=== PATIENT | male | born 1970 | race Caucasian/White ===

== ENCOUNTER → 2016-10-30 | Outpatient (CLI) | payer OTHER ==
[~2016-10-30] MED LIST: ACETAMINOPHEN TAB 500 MG TAB PO ONE; INFLIXIMAB IV ONE; LORATADINE 10 MG TAB PO ONE; SODIUM CHLORIDE 0.9% 250 ML in EMPTY BAG 1 BAG IV PRN; SODIUM CHLORIDE 0.9% 500 ML in EMPTY BAG 1 BAG IV PRN; SODIUM CHLORIDE 0.9% IV ONE
[2016-10-30 07:47] VITALS: TEMP 98
[2016-10-30 09:21] VITALS: BP 120/70; PULSE 65; RESP 16
== END | disposition home or self-care (01) ==
LOC: PROCWHC3 07:31
PROVIDERS: ATTEND Internal Medicine Gastroenterology
DX: K51.90 Ulcerative colitis, unspecified, without complications (principal)
CPT/HCPCS: 96361; 96413; 96415

== ENCOUNTER → 2016-12-25 | Outpatient (CLI) | payer OTHER ==
[2016-12-25 07:32] VITALS: TEMP 98.3
[2016-12-25 08:15] VITALS: PULSE 63; RESP 18
[2016-12-25 08:47] VITALS: BP 121/61
== END | disposition home or self-care (01) ==
LOC: PROCWHC3 07:15
PROVIDERS: ATTEND Internal Medicine Gastroenterology
DX: K51.90 Ulcerative colitis, unspecified, without complications (principal)
CPT/HCPCS: 96361; 96413; 96415

== ENCOUNTER → 2017-02-20 | Outpatient (CLI) | payer OTHER ==
[~2017-02-20] MED LIST changes: -ACETAMINOPHEN TAB 500 MG TAB PO ONE; -LORATADINE 10 MG TAB PO ONE
[2017-02-20 07:20] VITALS: RESP 16; TEMP 97.7
[2017-02-20 09:09] VITALS: BP 110/58; PULSE 66
== END ==
LOC: PROCWHC3 07:13
PROVIDERS: ATTEND Internal Medicine Gastroenterology
DX: K51.90 Ulcerative colitis, unspecified, without complications (principal)
CPT/HCPCS: 96360; 96413; 96415

== ENCOUNTER → 2017-04-17 | Outpatient (CLI) | payer OTHER ==
[~2017-04-17] MED LIST changes: +ACETAMINOPHEN TAB 500 MG TAB PO ONE; +LORATADINE 10 MG TAB PO ONE
[2017-04-17 08:08] VITALS: TEMP 98.2
[2017-04-17 09:39] VITALS: BP 118/64; PULSE 66; RESP 18
== END ==
LOC: PROCWHC3 07:13
PROVIDERS: ATTEND Internal Medicine Gastroenterology
DX: Z51.11 Encounter for antineoplastic chemotherapy (principal); K51.90 Ulcerative colitis, unspecified, without complications
CPT/HCPCS: 96413; 96415

== ENCOUNTER 2017-05-29 09:54 | Emergency (ER) | payer OTHER ==
[2017-05-29] MEDS ORDERED: KETOROLAC 30 MG/ML 1 ML VIAL IVP STA (10:12)
--- NOTE | 2017-05-29 10:14 | ED ---
General Adult HPI - General Chief complaint: Chest Pain Stated complaint: chest pain x 3 days Time Seen by Provider: 05/29/17 10:06 Source: patient, RN notes reviewed Mode of arrival: wheelchair Limitations: no limitations - History of Present Illness Initial comments: Patient is a pleasant 46-year-old male presenting to the emergency Department with chest discomfort. Onset was 2 or 3 days ago. Discomfort is sternal. Discomfort increases with deep breaths and cough. Discomfort also increases with certain positions. No dyspnea. No nausea or diaphoresis. No history of similar symptoms previously. Patient does have a history of previous pneumothorax and pleurisy however those are somewhat different. No leg pain or leg swelling. Patient has lost some weight over the past few once. Patient was diagnosed with lupus less than a year ago and has been on Plaquenil and did have 1 dose of steroids. Patient states his lupus mostly affects his joints. - Related Data Home Medications Medication Instructions Recorded Confirmed Mesalamine [Lialda] 2.4 gm PO DAILY 04/14/14 05/29/17 inFLIXimab [Remicade] 400 mg IVPB Q56D 01/07/15 05/29/17 Hydroxychloroquine Sulfate 200 mg PO BID 04/17/17 05/29/17 [Plaquenil] Dicyclomine [Bentyl] 10 mg PO BID 05/29/17 05/29/17 Previous Rx's Medication Instructions Recorded Acetaminophen-Codeine 300-30mg 2 each PO Q6H PRN #20 tablet 05/29/17 [Tylenol #3] Allergies Allergy/AdvReac Type Severity Reaction Status Date / Time Penicillins Allergy Severe Anaphylaxis Verified 05/29/17 10:27 Review of Systems ROS Statement: Those systems with pertinent positive or pertinent negative responses have been documented in the HPI. ROS Other: All systems not noted in ROS Statement are negative. Constitutional: Denies: fever Eyes: Denies: eye pain ENT: Denies: ear pain Respiratory: Denies: cough, dyspnea Cardiovascular: Reports: chest pain Endocrine: Denies: fatigue Gastrointestinal: Denies: abdominal pain Genitourinary: Denies: dysuria Musculoskeletal: Denies: back pain Skin: Denies: rash Neurological: Denies: weakness Past Medical History Past Medical History: Hyperlipidemia Additional Past Medical History / Comment(s): ulcerative colitis, cluster headaches, LUPUS History of Any Multi-Drug Resistant Organisms: None Reported Past Surgical History: Back Surgery, Hernia Repair Additional Past Surgical History / Comment(s): septoplasty, hernia,right arm tendon repair, clavicle reduction ,cervical fusion, COLONOSCOPY Past Anesthesia/Blood Transfusion Reactions: No Reported Reaction Past Psychological History: No Psychological Hx Reported Smoking Status: Current every day smoker Past Alcohol Use History: Rare Past Drug Use History: None Reported - Past Family History Mother History Unknown: Yes Family Medical History: Congestive Heart Failure (CHF), CVA/TIA Additional Family Medical History / Comment(s): at 65 Father Family Medical History: Cancer Additional Family Medical History / Comment(s): pancreatic cancer General Exam Limitations: no limitations General appearance: alert, in no apparent distress Head exam: Present: atraumatic Eye exam: Present: normal appearance, PERRL ENT exam: Present: normal oropharynx Neck exam: Present: normal inspection Respiratory exam: Present: normal lung sounds bilaterally, chest wall tenderness (Right sternal) Cardiovascular Exam: Present: regular rate, normal rhythm GI/Abdominal exam: Present: soft. Absent: tenderness Extremities exam: Present: normal inspection. Absent: pedal edema, calf tenderness Neurological exam: Present: alert Psychiatric exam: Present: normal affect, normal mood Skin exam: Present: normal color Course Vital Signs 05/29/17 05/29/17 09:58 11:23 Temperature 97.1 F L Pulse Rate 86 62 Respiratory 18 18 Rate Blood Pressure 147/73 115/69 O2 Sat by Pulse 100 100 Oximetry EKG Findings - EKG Comments: EKG Findings:: Normal sinus rhythm at 76. Sinus arrhythmia. AK 168. QRS 88. QT 372. QTC 418. Normal axis. Normal QRS. Early repolarization changes. Previous EKG dated 03/05/2016 reviewed. Medical Decision Making - Medical Decision Making Patient reexamined and significantly improved following Toradol. Case was discussed in detail with Dr. Bridgette matos, covering for Dr. Galan. He does feel patient can be discharged with all up in the beginning of the week. Patient states he feels much better and is comfortable with discharge home. - Lab Data Result diagrams: 05/29/17 10:20 05/29/17 10:20 Lab Results 05/29/17 05/29/17 05/29/17 Range/Units 10:20 10:20 10:20 WBC 7.9 (3.8-10.6) k/uL RBC 4.66 (4.30-5.90) m/uL Hgb 14.6 (13.0-17.5) gm/dL Hct 44.6 (39.0-53.0) % MCV 95.6 (80.0-100.0) fL MCH 31.3 (25.0-35.0) pg MCHC 32.8 (31.0-37.0) g/dL RDW 14.0 (11.5-15.5) % Plt Count 276 (150-450) k/uL Neutrophils % 52 % Lymphocytes % 32 % Monocytes % 8 % Eosinophils % 4 % Basophils % 1 % Neutrophils # 4.1 (1.3-7.7) k/uL Lymphocytes # 2.6 (1.0-4.8) k/uL Monocytes # 0.6 (0-1.0) k/uL Eosinophils # 0.3 (0-0.7) k/uL Basophils # 0.1 (0-0.2) k/uL PT (9.0-12.0) sec INR (<1.2) APTT (22.0-30.0) sec D-Dimer (<0.60) mg/L FEU Sodium 141 (137-145) mmol/L Potassium 4.3 (3.5-5.1) mmol/L Chloride 108 H (98-107) mmol/L Carbon Dioxide 24 (22-30) mmol/L Anion Gap 9 mmol/L BUN 18 (9-20) mg/dL Creatinine 0.91 (0.66-1.25) mg/dL Est GFR (MDRD) Af Amer >60 (>60 ml/min/1.73 sqM) Est GFR (MDRD) Non-Af >60 (>60 ml/min/1.73 sqM) Glucose 86 (74-99) mg/dL Calcium 9.1 (8.4-10.2) mg/dL Magnesium 1.8 (1.6-2.3) mg/dL Total Bilirubin 0.4 (0.2-1.3) mg/dL AST 26 (17-59) U/L ALT 42 (21-72) U/L Alkaline Phosphatase 47 (38-126) U/L Total Creatine Kinase 411 H (55-170) U/L CK-MB (CK-2) 1.6 (0.0-2.4) ng/mL CK-MB (CK-2) Rel Index 0.4 Troponin I <0.012 (0.000-0.034) ng/mL Total Protein 6.6 (6.3-8.2) g/dL Albumin 4.0 (3.5-5.0) g/dL 05/29/17 Range/Units 10:20 WBC (3.8-10.6) k/uL RBC (4.30-5.90) m/uL Hgb (13.0-17.5) gm/dL Hct (39.0-53.0) % MCV (80.0-100.0) fL MCH (25.0-35.0) pg MCHC (31.0-37.0) g/dL RDW (11.5-15.5) % Plt Count (150-450) k/uL Neutrophils % % Lymphocytes % % Monocytes % % Eosinophils % % Basophils % % Neutrophils # (1.3-7.7) k/uL Lymphocytes # (1.0-4.8) k/uL Monocytes # (0-1.0) k/uL Eosinophils # (0-0.7) k/uL Basophils # (0-0.2) k/uL PT 10.2 (9.0-12.0) sec INR 1.0 (<1.2) APTT 29.6 (22.0-30.0) sec D-Dimer 0.36 (<0.60) mg/L FEU Sodium (137-145) mmol/L Potassium (3.5-5.1) mmol/L Chloride (98-107) mmol/L Carbon Dioxide (22-30) mmol/L Anion Gap mmol/L BUN (9-20) mg/dL Creatinine (0.66-1.25) mg/dL Est GFR (MDRD) Af Amer (>60 ml/min/1.73 sqM) Est GFR (MDRD) Non-Af (>60 ml/min/1.73 sqM) Glucose (74-99) mg/dL Calcium (8.4-10.2) mg/dL Magnesium (1.6-2.3) mg/dL Total Bilirubin (0.2-1.3) mg/dL AST (17-59) U/L ALT (21-72) U/L Alkaline Phosphatase (38-126) U/L Total Creatine Kinase (55-170) U/L CK-MB (CK-2) (0.0-2.4) ng/mL CK-MB (CK-2) Rel Index Troponin I (0.000-0.034) ng/mL Total Protein (6.3-8.2) g/dL Albumin (3.5-5.0) g/dL - Radiology Data Radiology results: image reviewed (Chest x-ray shows no acute process) Disposition Clinical Impression: Chest pain Disposition: HOME SELF-CARE Condition: Stable Instructions: Chest Pain (ED) Additional Instructions: Please follow-up Thursday with Dr. Galan. Return for increased pain, change or worsening symptoms, difficulty breathing or other concerns. [id number] Tylenol as needed. Prescriptions: Acetaminophen-Codeine 300-30mg [Tylenol #3] 2 each PO Q6H PRN #20 tablet PRN Reason: Pain Referrals: Dave Galan MD [Primary Care Provider] - 1-2 days Time of Disposition: 13:29
[2017-05-29 10:36] LABS: Basophils # (A) 0.1 k/uL (0-0.2); Basophils % (A) 1 %; CH 32.5; CHCM 34.1; Eosinophils # (A) 0.3 k/uL (0-0.7); Eosinophils % (A) 4 %; HCT 44.6 % (39.0-53.0); HDW 2.15; HGB 14.6 gm/dL (13.0-17.5); Luc # (Auto) 0.23; Luc % (Auto) 3; Lymphocytes # (A) 2.6 k/uL (1.0-4.8); Lymphocytes % (A) 32 %; MCH 31.3 pg (25.0-35.0); MCHC 32.8 g/dL (31.0-37.0); MCV 95.6 fL (80.0-100.0); Monocytes # (A) 0.6 k/uL (0-1.0); Monocytes % (A) 8 %; Neutrophils # (A) 4.1 k/uL (1.3-7.7); Neutrophils % (A) 52 %; RBC 4.66 m/uL (4.30-5.90); WBC 7.9 k/uL (3.8-10.6); WBC (Perox) 7.77
[2017-05-29 10:48] LABS: ALT 42 U/L (21-72); AST 26 U/L (17-59); Alkaline Phosphatase 47 U/L (38-126); Anion Gap 9 mmol/L; Blood Urea Nitrogen 18 mg/dL (9-20); Calcium 9.1 mg/dL (8.4-10.2); Carbon Dioxide 24 mmol/L (22-30); Chloride 108 mmol/L (98-107); Glucose 86 mg/dL (74-99); Magnesium 1.8 mg/dL (1.6-2.3); Non-African American GFR(MDRD) >60 (>60 ml/min/1.73 sqM); Potassium 4.3 mmol/L (3.5-5.1); Sodium 141 mmol/L (137-145); Total Bilirubin 0.4 mg/dL (0.2-1.3); Total Protein 6.6 g/dL (6.3-8.2)
--- NOTE | 2017-05-29 10:52 | XR ---
EXAMINATION TYPE: XR chest 2V DATE OF EXAM: 05/29/2017 COMPARISON: 03/04/2016 HISTORY: History of pneumothorax and current chest pain. TECHNIQUE: Frontal and lateral views of the chest are obtained. FINDINGS: There is no focal air space opacity, pleural effusion, or pneumothorax seen. The cardiac silhouette size is within normal limits. The osseous structures are intact. IMPRESSION: No acute cardiopulmonary process.
[2017-05-29 10:56] LABS: Creatine Kinase 411 U/L (55-170); Partial Thromboplastin Time 29.6 sec (22.0-30.0); Prothrombin Time 10.2 sec (9.0-12.0)
[2017-05-29 11:10] LABS: Creatine Kinase MB 1.6 ng/mL (0.0-2.4); Troponin I <0.012 ng/mL (0.000-0.034)
[2017-05-29 13:36] VITALS: BP 123/69; PULSE 66; RESP 16; TEMP 97.3
== END 2017-05-29 13:42 | disposition home or self-care (01) ==
LOC: EC 09:54
DX: R07.89 Other chest pain (principal); F17.200 Nicotine dependence, unspecified, uncomplicated; Z88.0 Allergy status to penicillin; Z82.49 Family history of ischemic heart disease and other diseases of the circulatory system; Z79.899 Other long term (current) drug therapy
CPT/HCPCS: 36415; 93005; 85379; 80053; 82550; 82553; 83735; 84484; 85025; 85610; 85730; 71020; 99285; 96374; J1885

== ENCOUNTER → 2017-06-16 | Outpatient (CLI) | payer OTHER ==
[2017-06-16 17:33] LABS: Hepatitis B Surface Ag Index 0.06
== END | disposition home or self-care (01) ==
LOC: LABWHC1 15:35
PROVIDERS: ATTEND Internal Medicine Gastroenterology
DX: K52.9 Noninfective gastroenteritis and colitis, unspecified (principal); K25.9 Gastric ulcer, unspecified as acute or chronic, without hemorrhage or perforation
CPT/HCPCS: 36415; 86480; 86704; 87340

== ENCOUNTER → 2017-12-03 | Outpatient (CLI) | payer OTHER ==
[2017-12-03 16:07] LABS: Albumin 4.4 g/dL (3.5-5.0); Bilirubin, Delta 0.2 mg/dL (0.0-0.2); Bilirubin,Unconjugated 0.1 mg/dL (0.0-1.1); Total Bilirubin 0.3 mg/dL (0.2-1.3); Total Protein 7.3 g/dL (6.3-8.2)
== END | disposition home or self-care (01) ==
LOC: LABWHC1 15:12
PROVIDERS: ATTEND Internal Medicine
DX: M32.9 Systemic lupus erythematosus, unspecified (principal); M25.50 Pain in unspecified joint
CPT/HCPCS: 36415; 80076; 82085; 82550

== ENCOUNTER 2018-02-28 06:12 | Emergency (ER) | payer OTHER ==
--- NOTE | 2018-02-28 07:23 | XR ---
EXAM: XR Right Hip , 3 Views. CLINICAL HISTORY: Reason: Pain TECHNIQUE: Two views of the right hip, with AP view of the pelvis. COMPARISON: No relevant prior studies available. FINDINGS: Bones: No acute fracture. Joints: No dislocation. Sacroiliac joints are symmetric. Minimal degenerative changes of the right hip joint, with a small superior acetabular osteophyte. Soft tissues: Unremarkable. IMPRESSION: No acute osseous abnormality..
--- NOTE | 2018-02-28 07:36 | ED ---
General Adult HPI - General Chief complaint: Extremity Injury, Lower Stated complaint: Rt Hip Injury Time Seen by Provider: 02/28/18 07:00 Source: patient, RN notes reviewed Mode of arrival: ambulatory Limitations: no limitations - History of Present Illness Initial comments: This is a 47-year-old male who presents emergency Department complaining of anterior hip pain. Patient states he was trying to knock down a tree with his right leg while he was kicking he had sudden pain in the anterior aspect of his right hip. Patient states he is unable to lift his right leg off the bed because the pain. Upon further evaluation patient is unable to lift his leg off the bed at all regardless of the pain. Patient states lying flat increases the pain and striking to stand up with a leg is extended increases the pain. Patient states if he bends his knee and brings his knee towards his chest pain is relieved to some degree. Patient denies any swelling or ecchymosis. Patient denies similar injury in the past. Eyes any other injury at this time. - Related Data Home Medications Medication Instructions Recorded Confirmed Mesalamine [Lialda] 2.4 gm PO DAILY 04/14/14 02/28/18 Adalimumab [Humira Pen] 02/28/18 Aspirin [Adult Low Dose Aspirin EC] 81 mg PO 02/28/18 Previous Rx's Medication Instructions Recorded Hydrocodone/Acetaminophen [[place] 1 each PO Q4HR PRN #14 tab 02/28/18 5-325] Ibuprofen [Motrin] 600 mg PO Q6HR PRN #20 tab 02/28/18 Allergies Allergy/AdvReac Type Severity Reaction Status Date / Time Penicillins Allergy Severe Anaphylaxis Verified 02/28/18 06:20 Review of Systems ROS Statement: Those systems with pertinent positive or pertinent negative responses have been documented in the HPI. ROS Other: All systems not noted in ROS Statement are negative. Past Medical History Past Medical History: Hyperlipidemia Additional Past Medical History / Comment(s): ulcerative colitis, cluster headaches, LUPUS, History of Any Multi-Drug Resistant Organisms: None Reported Past Surgical History: Back Surgery, Hernia Repair Additional Past Surgical History / Comment(s): septoplasty, hernia,right arm tendon repair, clavicle reduction ,cervical fusion, COLONOSCOPY, two torn biceps fixed, Past Anesthesia/Blood Transfusion Reactions: No Reported Reaction Past Psychological History: No Psychological Hx Reported Smoking Status: Current every day smoker Past Alcohol Use History: Rare Past Drug Use History: None Reported - Past Family History Mother History Unknown: Yes Family Medical History: Congestive Heart Failure (CHF), CVA/TIA Additional Family Medical History / Comment(s): at 65 Father Family Medical History: Cancer Additional Family Medical History / Comment(s): pancreatic cancer General Exam - General Exam Comments Initial Comments: GENERAL Patient is well-developed and well-nourished. Patient is in mild distress. EYES Patient's pupils are equal and round. Extraocular motion is intact SKIN Unremarkable NEURO The patient is alert and oriented 3 PYSCH Patient has normal interpersonal interactions. MUSCULOSKELETAL Patient is unable to lift his right leg off the bed. palpating that area is slightly tender to the patient. Patient gets relief from pain when he bends his right knee. There is no swelling to the area there is no ecchymosis to the area. Limitations: no limitations Course Vital Signs 02/28/18 06:14 Temperature 97.5 F L Pulse Rate 81 Respiratory 18 Rate Blood Pressure 131/74 O2 Sat by Pulse 100 Oximetry Medical Decision Making - Medical Decision Making X-ray shows no acute abnormalities per the radiologist however I see a small area that might be indicative of avulsion fracture. He would be at the site of insertion of the rectus femoris. I tried to call Dr. Israel on 3 different occasions but got no response. Disposition Clinical Impression: Strain of flexor muscle of right hip Disposition: HOME SELF-CARE Condition: Good Instructions: Hip Sprain (ED) Prescriptions: Hydrocodone/Acetaminophen [[place] 5-325] 1 each PO Q4HR PRN #14 tab PRN Reason: Pain Ibuprofen [Motrin] 600 mg PO Q6HR PRN #20 tab PRN Reason: For pain Is patient prescribed a controlled substance at d/c from ED?: Yes When asked, does pt state using other controlled substances?: No Referrals: Dave Galan MD [Primary Care Provider] - 1-2 days Jv Israel MD [STAFF PHYSICIAN] - 1-2 days Time of Disposition: 09:13
[2018-02-28] MEDS ORDERED: KETOROLAC 60 MG/2 ML VIAL IM STA (07:39)
[2018-02-28 09:27] VITALS: BP 136/70; PULSE 58; RESP 16; TEMP 98
== END 2018-02-28 09:25 | disposition home or self-care (01) ==
LOC: EC 06:12
DX: S76.011A Strain of muscle, fascia and tendon of right hip, initial encounter (principal); K92.9 Disease of digestive system, unspecified; F17.200 Nicotine dependence, unspecified, uncomplicated; Z79.82 Long term (current) use of aspirin; Z79.899 Other long term (current) drug therapy; Z88.0 Allergy status to penicillin; W22.8XXA Striking against or struck by other objects, initial encounter; Y93.89 Activity, other specified
CPT/HCPCS: 73502; 99283; 96372; J1885

== ENCOUNTER 2018-07-15 13:58 | Emergency (ER) | payer OTHER ==
--- NOTE | 2018-07-15 15:19 | XR ---
EXAMINATION TYPE: XR chest 2V DATE OF EXAM: 07/15/2018 COMPARISON: May 29, 2017 HISTORY: Chest pain TECHNIQUE: Frontal and lateral views of the chest are obtained. FINDINGS: There is no focal air space opacity. No evidence for pneumothorax. No pleural effusion. The cardiac silhouette size is within normal limits. The osseous structures are grossly intact. IMPRESSION: 1. No acute cardiopulmonary process.
--- NOTE | 2018-07-15 15:23 | XR ---
EXAMINATION TYPE: XR soft tissue neck DATE OF EXAM: 07/15/2018 COMPARISON: None HISTORY: Pain TECHNIQUE: 2 views of the soft tissues of the neck are submitted. FINDINGS: Changes of ACDF at C5-6 with anterior fixation plate and screws unchanged in position relat lisa to prior evaluation of the cervical spine dated 06/04/2016. The airway is patent. Normal appearin g epiglottis. Retropharyngeal soft tissues are within normal limits. No evidence for radiopaque for eign body. IMPRESSION: ACDF fixation plate unchanged in position from prior study however likely imparts mass ef fect upon the cervical esophagus.
--- NOTE | 2018-07-15 15:54 | ED ---
General Adult HPI - General Chief complaint: Skin/Abscess/Foreign Body Stated complaint: FB in throat Time Seen by Provider: 07/15/18 14:30 Source: patient, RN notes reviewed Mode of arrival: ambulatory Limitations: no limitations - History of Present Illness Initial comments: This is a 48-year-old male who presents emergency Department with a esophageal foreign body. Patient states earlier today he was eating a [employer] steak sandwich any gas of meat stuck in his esophagus. Patient states this is happened many times in the past. Patient states he coughed for about 2 hours and thought it was finally gone within a few minutes later he felt as though he had a fullness and needed cough again and a big erica phlegm and possibly knee came up at which time he felt better but his throat was still extremely sore and he thought he might still have something in his esophagus. Patient states been able to drink. Patient states she had no difficulty breathing no shortness of breath and other than a raw throat he has no pain. - Related Data Home Medications Medication Instructions Recorded Confirmed Mesalamine [Lialda] 2.4 gm PO DAILY 04/14/14 02/28/18 Adalimumab [Humira Pen] 02/28/18 Aspirin [Adult Low Dose Aspirin EC] 81 mg PO 02/28/18 Previous Rx's Medication Instructions Recorded Hydrocodone/Acetaminophen [[place] 1 each PO Q4HR PRN #14 tab 02/28/18 5-325] Ibuprofen [Motrin] 600 mg PO Q6HR PRN #20 tab 02/28/18 Allergies Allergy/AdvReac Type Severity Reaction Status Date / Time Penicillins Allergy Severe Anaphylaxis Verified 07/15/18 14:34 Review of Systems ROS Statement: Those systems with pertinent positive or pertinent negative responses have been documented in the HPI. ROS Other: All systems not noted in ROS Statement are negative. Past Medical History Past Medical History: Hyperlipidemia Additional Past Medical History / Comment(s): ulcerative colitis, cluster headaches, LUPUS, History of Any Multi-Drug Resistant Organisms: None Reported Past Surgical History: Back Surgery, Hernia Repair Additional Past Surgical History / Comment(s): septoplasty, hernia,right arm tendon repair, clavicle reduction ,cervical fusion, COLONOSCOPY, two torn biceps fixed, Past Anesthesia/Blood Transfusion Reactions: No Reported Reaction Past Psychological History: No Psychological Hx Reported Smoking Status: Current every day smoker Past Alcohol Use History: Rare Past Drug Use History: None Reported - Past Family History Mother History Unknown: Yes Family Medical History: Congestive Heart Failure (CHF), CVA/TIA Additional Family Medical History / Comment(s): at 65 Father Family Medical History: Cancer Additional Family Medical History / Comment(s): pancreatic cancer General Exam - General Exam Comments Initial Comments: GENERAL: Patient is well-developed and well-nourished. Patient is nontoxic and well- hydrated and is in no acute distress. ENT: Neck is soft and supple. Neck has full range of motion without eliciting any pain. EYES: The sclera were anicteric and conjunctiva were pink and moist. Extraocular movements were intact and pupils were equal round and reactive to light. Eyelids were unremarkable. PULMONARY: Unlabored respirations. Good breath sounds bilaterally. No audible rales rhonchi or wheezing was noted. CARDIOVASCULAR: There is a regular rate and rhythm without any murmurs gallops or rubs. SKIN: Skin is clear with no lesions or rashes and otherwise unremarkable. NEUROLOGIC: Patient is alert and oriented x3. MUSCULOSKELETAL: Normal extremities with adequate strength and full range of motion. LYMPHATICS: No significant lymphadenopathy is noted PSYCHIATRIC: Normal psychiatric evaluation. Limitations: no limitations Course Vital Signs 07/15/18 14:27 Temperature 98.1 F Pulse Rate 77 Respiratory 20 Rate Blood Pressure 148/90 O2 Sat by Pulse 98 Oximetry Medical Decision Making - Medical Decision Making Patient was able to drink and eat crackers and Jell-O in the emergency department without problem. Patient was requesting go home at this time. Disposition Clinical Impression: Esophageal foreign body Disposition: HOME SELF-CARE Instructions: Esophageal Foreign Body (ED) Is patient prescribed a controlled substance at d/c from ED?: No Referrals: Dave Galan MD [Primary Care Provider] - 1-2 days Time of Disposition: 15:54
[2018-07-15 16:11] VITALS: BP 135/72; PULSE 69; RESP 18; TEMP 98
== END 2018-07-15 16:11 | disposition home or self-care (01) ==
LOC: EC 13:58
DX: T18.128A Food in esophagus causing other injury, initial encounter (principal); K51.90 Ulcerative colitis, unspecified, without complications; F17.200 Nicotine dependence, unspecified, uncomplicated; Z88.0 Allergy status to penicillin; Z79.82 Long term (current) use of aspirin; Z79.899 Other long term (current) drug therapy
CPT/HCPCS: 70360; 71046; 99283

== ENCOUNTER → 2019-02-02 | Outpatient (CLI) | payer OTHER ==
[2019-02-02 11:45] LABS: Appearance,Urine Clear (Clear); Bilirubin,Urine Negative (Negative); Blood,Urine Negative (Negative); Color,Urine Yellow; Glucose,Urine (UA) Negative (Negative); Ketones,Urine Negative (Negative); Leukocyte Esterase,Urine Negative (Negative); Nitrite,Urine Negative (Negative); Protein,Urine Negative (Negative); Specific Gravity,Urine 1.017 (1.001-1.035); Urobilinogen,Urine <2.0 mg/dL (<2.0)
[2019-02-02 13:19] LABS: Basophils # (A) 0.1 k/uL (0-0.2); Basophils % (A) 1 %; Eosinophils # (A) 0.4 k/uL (0-0.7); Eosinophils % (A) 4 %; HCT 45.7 % (39.0-53.0); HGB 14.8 gm/dL (13.0-17.5); Lymphocytes # (A) 2.8 k/uL (1.0-4.8); Lymphocytes % (A) 28 %; MCH 31.3 pg (25.0-35.0); MCHC 32.5 g/dL (31.0-37.0); MCV 96.2 fL (80.0-100.0); Mean Platelet Volume 6.8; Monocytes # (A) 0.5 k/uL (0-1.0); Monocytes % (A) 5 %; Neutrophils % (A) 61 %; Platelet Count 344 k/uL (150-450); RBC 4.75 m/uL (4.30-5.90); RDW 13.4 % (11.5-15.5); WBC 9.9 k/uL (3.8-10.6)
[2019-02-02 15:24] LABS: Erythrocyte Sedimentation Rate 4 mm/hr (0-15)
[2019-02-02 18:15] LABS: Gliadin AB IgA, Unit <0.2 U/mL
[2019-02-02 19:59] LABS: Albumin 4.4 g/dL (3.80-4.90); Calcium 9.3 mg/dL (8.7-10.3); Globulin 2.2 g/dL (1.6-3.3); Potassium 4.6 mmol/L (3.5-5.5); Total Bilirubin 0.4 mg/dL (0.3-1.2); Total Protein 6.6 g/dL (6.2-8.2)
[2019-02-03 10:43] LABS: IgG Subclass 3 9.7 mg/dL (11.0-85.0); Immunoglobulin M 86.7 mg/dL (40.0-280.0)
[2019-02-03 11:16] LABS: Anti-Endomysial IgA Antibody <1:10 Titer (<1:10)
== END | disposition home or self-care (01) ==
LOC: LABWHC1 10:55
PROVIDERS: ATTEND Allergy & Immunology
DX: J01.91 Acute recurrent sinusitis, unspecified (principal); K21.9 Gastro-esophageal reflux disease without esophagitis; K52.9 Noninfective gastroenteritis and colitis, unspecified
CPT/HCPCS: 36415; 80053; 81003; 82784; 82785; 82787; 83516; 85025; 85652; 86003; 86162; 86255; 86317; 86684

== ENCOUNTER → 2019-06-24 | Outpatient (CLI) | payer OTHER ==
[2019-06-24 09:17] LABS: Basophils # (A) 0.1 k/uL (0-0.2); Basophils % (A) 1 %; Eosinophils # (A) 0.5 k/uL (0-0.7); Eosinophils % (A) 6 %; HCT 51.3 % (39.0-53.0); HGB 16.8 gm/dL (13.0-17.5); Lymphocytes # (A) 2.9 k/uL (1.0-4.8); Lymphocytes % (A) 38 %; MCH 31.6 pg (25.0-35.0); MCHC 32.7 g/dL (31.0-37.0); MCV 96.6 fL (80.0-100.0); Mean Platelet Volume 6.3; Monocytes # (A) 0.4 k/uL (0-1.0); Monocytes % (A) 6 %; Neutrophils # (A) 3.6 k/uL (1.3-7.7); Neutrophils % (A) 47 %; Platelet Count 275 k/uL (150-450); RBC 5.31 m/uL (4.30-5.90); RDW 13.1 % (11.5-15.5); WBC 7.7 k/uL (3.8-10.6)
[2019-06-24 16:53] LABS: Immunoglobulin E 63.2 IU/mL (0.00-114.00)
[2019-06-25 11:06] LABS: IgG Subclass 3 8.6 mg/dL (11.0-85.0); Immunoglobulin M 73.5 mg/dL (40.0-280.0)
== END | disposition home or self-care (01) ==
LOC: LABWHC1 08:56
PROVIDERS: ATTEND Allergy & Immunology
DX: J32.9 Chronic sinusitis, unspecified (principal); D80.3 Selective deficiency of immunoglobulin G [IgG] subclasses
CPT/HCPCS: 36415; 82784; 82785; 82787; 85025; 86003; 86160; 86317

== ENCOUNTER → 2020-08-07 | Outpatient (CLI) | payer BC ==
[2020-08-07 11:14] LABS: Basophils # (A) 0.1 k/uL (0-0.2); Basophils % (A) 2 %; Eosinophils # (A) 0.4 k/uL (0-0.7); Eosinophils % (A) 7 %; HGB 17.4 gm/dL (13.0-17.5); Lymphocytes # (A) 2.8 k/uL (1.0-4.8); Lymphocytes % (A) 42 %; MCH 31.8 pg (25.0-35.0); MCHC 32.8 g/dL (31.0-37.0); Mean Platelet Volume 6.6; Monocytes # (A) 0.3 k/uL (0-1.0); Monocytes % (A) 5 %; Neutrophils # (A) 2.8 k/uL (1.3-7.7); Neutrophils % (A) 43 %; Platelet Count 343 k/uL (150-450); RBC 5.46 m/uL (4.30-5.90); RDW 12.5 % (11.5-15.5); WBC 6.6 k/uL (3.8-10.6)
[2020-08-07 15:46] LABS: DHEA Sulfate 39.7 ug/dL (34.5-568.9)
[2020-08-07 17:02] LABS: ACTH 12.9 pg/mL (0.00-45.99)
[2020-08-07 18:48] LABS: Hemoglobin A1C 5.6 % (4.0-6.0)
[2020-08-07 21:00] LABS: ALT 41 U/L (10-49); AST 35 U/L (14-35); African American GFR (CKD) 102.7 (60.0-200.0); Albumin/Globulin Ratio 1.87 (1.60-3.17); Alkaline Phosphatase 56 U/L (41-126); Calcium 9.3 mg/dL (8.7-10.3); Carbon Dioxide 28.7 mmol/L (21.6-31.8); Chloride 104 mmol/L (96-109); Chol/HDL Ratio 4.21; Cholesterol 202 mg/dL (0-200); Globulin 2.3 g/dL (1.6-3.3); Glucose 86 mg/dL (70-110); LDL Cholesterol,Calculated 135.6 mg/dL (0.0-131.0); Non-African American GFR(CKD) 88.6 (60.0-200.0); Potassium 4.5 mmol/L (3.5-5.5); Sodium 139 mmol/L (135-145); Total Bilirubin 0.4 mg/dL (0.3-1.2); Total Protein 6.6 g/dL (6.2-8.2)
[2020-08-07 21:08] LABS: Estradiol 34.7 pg/mL
[2020-08-07 21:10] LABS: Follicle Stimulating Hormone 0.4 mIU/mL
[2020-08-07 21:13] LABS: Prostate Specific Antigen 0.8 ng/mL (0.0-2.5)
[2020-08-07 21:19] LABS: Luteinizing Hormone <0.1 mIU/mL
== END | disposition home or self-care (01) ==
LOC: LABWHC1 09:10
PROVIDERS: ATTEND Internal Medicine
DX: E07.9 Disorder of thyroid, unspecified (principal); E34.9 Endocrine disorder, unspecified; E55.9 Vitamin D deficiency, unspecified; E23.0 Hypopituitarism
CPT/HCPCS: 36415; 80053; 80061; 82024; 82040; 82306; 82533; 82627; 82642; 82670; 83001; 83002; 83036; 83735; 84140; 84146; 84153; 84270; 84305; 84403; 84439; 84443; 84481; 85025; 86141

== ENCOUNTER → 2020-10-25 | Outpatient (CLI) | payer BC, OTHER ==
[2020-10-25 09:16] LABS: Basophils # (A) 0.1 k/uL (0-0.2); Basophils % (A) 1 %; Eosinophils # (A) 0.4 k/uL (0-0.7); Eosinophils % (A) 4 %; HGB 17.3 gm/dL (13.0-17.5); Lymphocytes % (A) 38 %; MCHC 32.7 g/dL (31.0-37.0); MCV 94.8 fL (80.0-100.0); Mean Platelet Volume 6.5; Monocytes # (A) 0.6 k/uL (0-1.0); Monocytes % (A) 8 %; Neutrophils # (A) 3.8 k/uL (1.3-7.7); Neutrophils % (A) 47 %; Platelet Count 268 k/uL (150-450); RBC 5.59 m/uL (4.30-5.90); RDW 13.8 % (11.5-15.5); WBC 8.1 k/uL (3.8-10.6)
[2020-10-25 17:23] LABS: African American GFR (CKD) 91.5 (60.0-200.0); Albumin 4.4 g/dL (3.80-4.90); Anion Gap 6.4 mmol/L (4.00-12.00); BUN/Creat Ratio 18.18 Ratio (12.00-20.00); C Reactive Protein, High Sens 1.23 mg/L (0.000-3.000); Calcium 9.3 mg/dL (8.7-10.3); Carbon Dioxide 29.6 mmol/L (21.6-31.8); Chol/HDL Ratio 5.3; Globulin 2.2 g/dL (1.6-3.3); LDL Cholesterol,Calculated 148.8 mg/dL (0.0-131.0); Potassium 4.7 mmol/L (3.5-5.5); Total Bilirubin 0.5 mg/dL (0.3-1.2); Total Protein 6.6 g/dL (6.2-8.2); VLDL Calculation 23.2 mg/dL (5.00-40.00)
[2020-10-25 17:31] LABS: Prostate Specific Antigen 0.8 ng/mL (0.0-2.5); T4, Free (Free Thyroxine) 1.1 ng/dL (0.80-1.80)
[2020-10-25 17:41] LABS: Estradiol 33.3 pg/mL
[2020-10-25 19:13] LABS: Hemoglobin A1C 5.9 % (4.0-6.0)
== END | disposition home or self-care (01) ==
LOC: LABWHC1 08:38
PROVIDERS: ATTEND Internal Medicine
DX: E07.9 Disorder of thyroid, unspecified (principal); E34.9 Endocrine disorder, unspecified; E55.9 Vitamin D deficiency, unspecified; E23.0 Hypopituitarism
CPT/HCPCS: 36415; 80053; 80061; 82040; 82306; 82533; 82627; 82642; 82670; 83036; 83735; 84153; 84270; 84305; 84403; 84439; 84443; 84481; 85025; 86141

== ENCOUNTER → 2021-03-11 | Outpatient (CLI) | payer BC ==
[2021-03-11 17:15] LABS: Amorphous Sediment,Urine Moderate /hpf; Appearance,Urine Turbid (Clear); Bilirubin,Urine Negative (Negative); Blood,Urine Negative (Negative); Color,Urine Yellow; Glucose,Urine (UA) Negative (Negative); Ketones,Urine Negative (Negative); Leukocyte Esterase,Urine Negative (Negative); Nitrite,Urine Negative (Negative); Protein,Urine Trace (Negative); Specific Gravity,Urine 1.023 (1.001-1.035); Urobilinogen,Urine <2.0 mg/dL (<2.0); WBC,Urine 1 /hpf (0-5)
[2021-03-12 00:12] LABS: Basophils # (A) 0.06 X 10*3/uL (0.00-0.10); Basophils % (A) 0.8 %; Eosinophils # (A) 0.45 X 10*3/uL (0.04-0.35); Eosinophils % (A) 6.2 %; HCT 47.8 % (39.6-50.0); HGB 15.5 g/dL (13.0-17.0); Lymphocytes # (A) 3.19 X 10*3/uL (0.90-5.00); Lymphocytes % (A) 43.9 %; MCH 31.4 pg (27.0-32.0); MCHC 32.4 g/dL (32.0-37.0); MCV 96.8 fL (80.0-97.0); Mean Platelet Volume 9.6 fL (9.5-12.2); Monocytes # (A) 0.59 X 10*3/uL (0.20-1.00); Monocytes % (A) 8.1 %; Neutrophils # (A) 2.96 X 10*3/uL (1.80-7.70); Neutrophils % (A) 40.9 %; Platelet Count 336 X 10*3/uL (140-440); RBC 4.94 X 10*6/uL (4.40-5.60); RDW 13.9 % (11.5-14.5); WBC 7.26 X 10*3/uL (4.50-10.00)
[2021-03-12 02:50] LABS: African American GFR (CKD) 91.5 (60.0-200.0); Albumin 4.4 g/dL (3.80-4.90); Anion Gap 5.8 mmol/L (4.00-12.00); BUN/Creat Ratio 17.27 Ratio (12.00-20.00); Calcium 8.9 mg/dL (8.7-10.3); Carbon Dioxide 28.2 mmol/L (21.6-31.8); Globulin 2.2 g/dL (1.6-3.3); Potassium 4.6 mmol/L (3.5-5.5); Total Bilirubin 0.3 mg/dL (0.3-1.2); Total Protein 6.6 g/dL (6.2-8.2)
[2021-03-12 03:53] LABS: INR 0.97 (0.90-1.11); Partial Thromboplastin Time 32.2 sec (23.5-31.0); Prothrombin Time 10.6 sec (9.9-11.9)
[2021-03-12 04:43] LABS: Hemoglobin A1C 5.5 % (4.0-6.0)
== END | disposition home or self-care (01) ==
LOC: LABWHC1 16:24
DX: M47.812 Spondylosis without myelopathy or radiculopathy, cervical region (principal)
CPT/HCPCS: 36415; 80053; 81001; 83036; 84134; 85025; 85610; 85730

== ENCOUNTER → 2021-10-31 | Outpatient (CLI) | payer BC ==
[~2021-10-31] MED LIST changes: -ACETAMINOPHEN TAB 500 MG TAB PO ONE; +CASIRIVIMAB (REGN10933) (EUA) 600 MG, IMDEVIMAB (REGN10987) (EUA) 600 MG in SODIUM CHLO... IVPB ONE; -INFLIXIMAB IV ONE; -LORATADINE 10 MG TAB PO ONE; -SODIUM CHLORIDE 0.9% 250 ML in EMPTY BAG 1 BAG IV PRN; +SODIUM CHLORIDE 0.9% 50 ML IVPB ONE; +SODIUM CHLORIDE 0.9% 500 ML 500 ML in EMPTY BAG 1 BAG IV PRN; -SODIUM CHLORIDE 0.9% 500 ML in EMPTY BAG 1 BAG IV PRN; -SODIUM CHLORIDE 0.9% IV ONE; +diphenhydrAMINE 50 MG/ML 1 ML VIAL IVP STA
[2021-10-31 10:40] VITALS: TEMP 98.2
[2021-10-31 11:01] VITALS: BP 134/76; PULSE 69; RESP 16
== END ==
LOC: PROCWHC3 10:00
PROVIDERS: ATTEND Internal Medicine
DX: U07.1 COVID-19 (principal); F17.200 Nicotine dependence, unspecified, uncomplicated; Z88.0 Allergy status to penicillin
CPT/HCPCS: 96360; 96375; J1200; Q0244; M0243

== ENCOUNTER → 2022-05-15 | Outpatient (CLI) | payer BC ==
--- NOTE | 2022-05-15 08:28 | US ---
EXAMINATION TYPE: US abdomen complete DATE OF EXAM: 05/15/2022 COMPARISON: NONE CLINICAL HISTORY: 51-year-old male R10.9 ABDOMINAL PAIN. TECHNIQUE: Multiple sonographic images of the abdomen are obtained. FINDINGS: EXAM MEASUREMENTS: Liver Length: 14.5 cm Gallbladder Wall: 0.2 cm CBD: 0.3 cm Spleen: 10.9 cm Right Kidney: 13.0 x 5.6 x 6.2 cm Left Kidney: 12.1 x 5.6 x 5.6 cm Pancreas: wnl Liver: wnl Gallbladder: wnl Evidence for sonographic Israel's sign: no CBD: wnl Spleen: wnl Right Kidney: Upper limits of normal in size, possibly related to patient the patient's height. Left Kidney: Upper limits of normal in size, possibly related to patient the patient's height. Upper IVC: wnl Abd Aorta: wnl IMPRESSION: Somewhat generous size of the kidneys may relate to patient's stature. Otherwise, unremarkable sonogr aphic examination of the abdomen.
== END | disposition home or self-care (01) ==
LOC: RADUSWWP 07:03
PROVIDERS: ATTEND Internal Medicine
DX: R10.9 Unspecified abdominal pain (principal)
CPT/HCPCS: 76700

== ENCOUNTER → 2022-08-14 | Outpatient (CLI) | payer BC ==
--- NOTE | 2022-08-14 07:49 | CTL ---
EXAMINATION TYPE: CT Low Dose Lung DATE OF EXAM ORDERED: 08/14/2022 HISTORY: Long-term tobacco use. Lung cancer screening CT DLP: 107.[address] CTDI: 2.9 mGy Automated exposure control for dose reduction was used. SCREENING VISIT: Baseline COMPARISON: None TECHNIQUE: Low dose computed tomography scan was performed through the chest at 1 mm thick sections a nd reconstructed images in multiple planes at 1 mm and [address] DIAGNOSTIC QUALITY: Satisfactory FINDINGS: LUNG NODULES: None. LUNGS: COPD: Severity: None Fibrosis: Severity: None Lymph nodes: None Other findings: None RIGHT PLEURAL SPACE: Effusion: None Calcification: None Thickening: None Pneumothorax: None LEFT PLEURAL SPACE: Effusion: None Calcification: None Thickening: Mild focal thickening inferiorly Pneumothorax: None HEART: Heart Size: Normal Coronary Calcification: Mild in the LAD distribution Pericardial Effusion: None OTHER FINDINGS: Upper abdomen: None Bony thorax: Slight levoconvex scoliotic curvature centered upper to mid thoracic spine Supraclavicular region: None Other: None IMPRESSION: No suspicious nodules CT LUNG RAD AND CT CHEST RECOMMENDATION: Lung-Rad 1 Negative: Continue annual screening with LDCT in 12 months. S Modifier (other clinically significant findings): None
== END | disposition home or self-care (01) ==
LOC: RADCTMAIN 06:31
PROVIDERS: ATTEND Internal Medicine
DX: Z12.2 Encounter for screening for malignant neoplasm of respiratory organs (principal); Z87.891 Personal history of nicotine dependence
CPT/HCPCS: 71271

== ENCOUNTER 2022-09-21 10:45 | Emergency (ER) | payer BC ==
[2022-09-21 10:53] VITALS: TEMP 98
[2022-09-21 11:21] LABS: INR 0.9 (<1.2); Partial Thromboplastin Time 25.8 sec (22.0-30.0); Prothrombin Time 10.2 sec (9.0-12.0)
[2022-09-21 11:23] LABS: African American GFR (CKD) >90 (>60 ml/min/1.73 sqM); Anion Gap 6 mmol/L; Blood Urea Nitrogen 14 mg/dL (9-20); Calcium 8.8 mg/dL (8.4-10.2); Carbon Dioxide 28 mmol/L (22-30); Chloride 105 mmol/L (98-107); Glucose 121 mg/dL (74-99); Non-African American GFR(CKD) 86 (>60 ml/min/1.73 sqM); Potassium 4.4 mmol/L (3.5-5.1); Sodium 139 mmol/L (137-145)
--- NOTE | 2022-09-21 11:25 | ED ---
General Adult HPI - General Chief complaint: Chest Pain Stated complaint: Hypertensive, Heart palpitations Time Seen by Provider: 09/21/22 11:04 Source: patient Mode of arrival: ambulatory Limitations: no limitations - History of Present Illness Initial comments: Dictation was produced using [employer] dictation software. please excuse any grammatical, word or spelling errors. Chief Complaint: 52-year-old male presents emergency department with malaise and elevated blood pressure History of Present Illness: Patient is a 52-year-old male presents emergency department worsening malaise. States his symptoms began 5 days ago. Patient usually exercises 7 days a week. He states that he tries to be very healthy. Patient didn't feel good 5 days ago. He went to go donate blood was told that his blood pressure was too high and they would not be able to accept blood donation from him. He did went home checked his blood pressure multiple times. His systolics would be over 160. She states that he does not have a history of hypertension. She states that he feels like he can sentences heart beating. Patient denies any chest pain or chest pressure. He is however aware of his heart beating. Denies any headache. No numbness and paresthesias to the arms or legs. He was told to leave work because of his symptoms. The ROS documented in this emergency department record has been reviewed and confirmed by me. Those systems with pertinent positive or negative responses have been documented in the HPI. All other systems are other negative and/or noncontributory. PHYSICAL EXAM: General Impression: Alert and oriented x3, not in acute distress HEENT: Normocephalic atraumatic, extra-ocular movements intact, pupils equal and reactive to light bilaterally, mucous membranes moist. Cardiovascular: Heart regular rate and rhythm Chest: Able to complete full sentences, no retractions, no tachypnea Abdomen: abdomen soft, non-tender, non-distended, no organomegaly Musculoskeletal: Pulses present and equal in all extremities, no peripheral edema Motor: no focal deficits noted Neurological: CN II-XII grossly intact, no focal motor or sensory deficits noted Skin: Intact with no visualized rashes Psych: Normal affect and mood ED course: 52 yo well-appearing male presents emergency Department chief complaints of malaise and hypertension. Vital signs upon arrival are within acceptable limits. Patient does not have any features to suggest hypertensive emergency. EKG shows benign early repolarization precordial leads. Chart review was performed Laboratory evaluation obtained. CBC, metabolic panel is unremarkable. Troponin is negative. Chest x-ray is nonacute. Negative for RSV, influenza or COVID-19. Patient observed in emergency department. His blood pressures have been monitored and improved. Patient reevaluated bedside 12:15 PM. he states that he feels well. At this point patient be discharged. He is advised follow-up with primary care doctor. My EKG interpretation: Ventricular rate 65, sinus rhythm, WA interval 181, Lena 6, QTC 376. No WA prolongation, no QTC prolongation, no ST or T-wave changes noted. EKG compared to default value showing no changes. Overall, this EKG is unremarkable Critical Care: no Critical Care time: n/a - Related Data Home Medications Medication Instructions Recorded Confirmed Mesalamine [Lialda] 2.4 gm PO DAILY 04/14/14 07/15/18 Adalimumab [Humira Pen] 40 mg SQ Q14D 02/28/18 07/15/18 Aspirin [Adult Low Dose Aspirin EC] 81 mg PO DAILY 02/28/18 07/15/18 Allergies Allergy/AdvReac Type Severity Reaction Status Date / Time Penicillins Allergy Severe Anaphylaxis Verified 10/31/21 10:38 Review of Systems ROS Statement: Those systems with pertinent positive or pertinent negative responses have been documented in the HPI. ROS Other: All systems not noted in ROS Statement are negative. Past Medical History Past Medical History: Hyperlipidemia Additional Past Medical History / Comment(s): ulcerative colitis, cluster headaches, LUPUS, History of Any Multi-Drug Resistant Organisms: None Reported Past Surgical History: Back Surgery, Hernia Repair Additional Past Surgical History / Comment(s): septoplasty, hernia,right arm tendon repair, clavicle reduction ,cervical fusion, COLONOSCOPY, two torn biceps fixed, Past Anesthesia/Blood Transfusion Reactions: No Reported Reaction Past Psychological History: No Psychological Hx Reported Past Alcohol Use History: Rare Past Drug Use History: None Reported - Past Family History Mother History Unknown: Yes Family Medical History: Congestive Heart Failure (CHF), CVA/TIA Additional Family Medical History / Comment(s): at 65 Father Family Medical History: Cancer Additional Family Medical History / Comment(s): pancreatic cancer General Exam Limitations: no limitations Course Vital Signs 09/21/22 10:49 Temperature 98 F Pulse Rate 80 Respiratory 16 Rate Blood Pressure 146/94 O2 Sat by Pulse 100 Oximetry Medical Decision Making - Lab Data Result diagrams: 09/21/22 11:07 09/21/22 11:07 Lab Results 09/21/22 09/21/22 09/21/22 Range/Units 11:07 11:07 11:07 WBC 9.1 (3.8-10.6) k/uL RBC 5.38 (4.30-5.90) m/uL Hgb 15.6 (13.0-17.5) gm/dL Hct 49.1 (39.0-53.0) % MCV 91.3 (80.0-100.0) fL MCH 28.9 (25.0-35.0) pg MCHC 31.7 (31.0-37.0) g/dL RDW 14.3 (11.5-15.5) % Plt Count 377 (150-450) k/uL MPV 7.2 Neutrophils % 56 % Lymphocytes % 32 % Monocytes % 5 % Eosinophils % 4 % Basophils % 1 % Neutrophils # 5.1 (1.3-7.7) k/uL Lymphocytes # 2.9 (1.0-4.8) k/uL Monocytes # 0.5 (0-1.0) k/uL Eosinophils # 0.4 (0-0.7) k/uL Basophils # 0.1 (0-0.2) k/uL Hypochromasia Slight PT 10.2 (9.0-12.0) sec INR 0.9 (<1.2) APTT 25.8 (22.0-30.0) sec Sodium 139 (137-145) mmol/L Potassium 4.4 (3.5-5.1) mmol/L Chloride 105 (98-107) mmol/L Carbon Dioxide 28 (22-30) mmol/L Anion Gap 6 mmol/L BUN 14 (9-20) mg/dL Creatinine 1.02 (0.66-1.25) mg/dL Est GFR (CKD-EPI)AfAm >90 (>60 ml/min/1.73 sqM) Est GFR (CKD-EPI)NonAf 86 (>60 ml/min/1.73 sqM) Glucose 121 H (74-99) mg/dL Calcium 8.8 (8.4-10.2) mg/dL Troponin I (0.000-0.034) ng/mL Influenza Type A (PCR) (Not Detectd) Influenza Type B (PCR) (Not Detectd) RSV (PCR) (Not Detectd) SARS-CoV-2 (PCR) (Not Detectd) 09/21/22 09/21/22 Range/Units 11:07 11:24 WBC (3.8-10.6) k/uL RBC (4.30-5.90) m/uL Hgb (13.0-17.5) gm/dL Hct (39.0-53.0) % MCV (80.0-100.0) fL MCH (25.0-35.0) pg MCHC (31.0-37.0) g/dL RDW (11.5-15.5) % Plt Count (150-450) k/uL MPV Neutrophils % % Lymphocytes % % Monocytes % % Eosinophils % % Basophils % % Neutrophils # (1.3-7.7) k/uL Lymphocytes # (1.0-4.8) k/uL Monocytes # (0-1.0) k/uL Eosinophils # (0-0.7) k/uL Basophils # (0-0.2) k/uL Hypochromasia PT (9.0-12.0) sec INR (<1.2) APTT (22.0-30.0) sec Sodium (137-145) mmol/L Potassium (3.5-5.1) mmol/L Chloride (98-107) mmol/L Carbon Dioxide (22-30) mmol/L Anion Gap mmol/L BUN (9-20) mg/dL Creatinine (0.66-1.25) mg/dL Est GFR (CKD-EPI)AfAm (>60 ml/min/1.73 sqM) Est GFR (CKD-EPI)NonAf (>60 ml/min/1.73 sqM) Glucose (74-99) mg/dL Calcium (8.4-10.2) mg/dL Troponin I 0.013 (0.000-0.034) ng/mL Influenza Type A (PCR) Not Detected (Not Detectd) Influenza Type B (PCR) Not Detected (Not Detectd) RSV (PCR) Not Detected (Not Detectd) SARS-CoV-2 (PCR) Not Detected (Not Detectd) Disposition Clinical Impression: Hypertension Disposition: HOME SELF-CARE Condition: Good Instructions (If sedation given, give patient instructions): Hypertension (ED) Is patient prescribed a controlled substance at d/c from ED?: No Referrals: Vasyl Sharp MD [Primary Care Provider] - 1-2 days Time of Disposition: 12:17
--- NOTE | 2022-09-21 11:28 | XR ---
EXAMINATION TYPE: XR chest 2V DATE OF EXAM: 09/21/2022 COMPARISON: 07/15/2018 HISTORY: Chest pain TECHNIQUE: Frontal and lateral views of the chest are obtained. FINDINGS: There is no focal air space opacity, pleural effusion, or pneumothorax seen. The cardiac silhouette size is within normal limits. The osseous structures are intact. IMPRESSION: No acute cardiopulmonary process.
[2022-09-21 11:40] LABS: Basophils # (A) 0.1 k/uL (0-0.2); Basophils % (A) 1 %; Eosinophils # (A) 0.4 k/uL (0-0.7); Eosinophils % (A) 4 %; HCT 49.1 % (39.0-53.0); HGB 15.6 gm/dL (13.0-17.5); Hypochromasia Slight; Lymphocytes # (A) 2.9 k/uL (1.0-4.8); Lymphocytes % (A) 32 %; MCH 28.9 pg (25.0-35.0); MCHC 31.7 g/dL (31.0-37.0); MCV 91.3 fL (80.0-100.0); Mean Platelet Volume 7.2; Monocytes # (A) 0.5 k/uL (0-1.0); Monocytes % (A) 5 %; Neutrophils # (A) 5.1 k/uL (1.3-7.7); Neutrophils % (A) 56 %; Platelet Count 377 k/uL (150-450); RBC 5.38 m/uL (4.30-5.90); RDW 14.3 % (11.5-15.5); WBC 9.1 k/uL (3.8-10.6)
[2022-09-21 12:17] VITALS: BP 139/79; PULSE 58; RESP 18
== END 2022-09-21 12:26 | disposition home or self-care (01) ==
LOC: EC 10:45
DX: I10 Essential (primary) hypertension (principal); E78.5 Hyperlipidemia, unspecified; Z20.822 Contact with and (suspected) exposure to COVID-19; Z88.0 Allergy status to penicillin; Z79.82 Long term (current) use of aspirin
CPT/HCPCS: 36415; 71046; 80048; 84484; 85025; 85610; 85730; 87636; 93005; 99285

== ENCOUNTER 2022-10-01 07:48 | Day surgery (SDC) | payer BC ==
[2022-09-29 15:47] VITALS: BMI 24.1
[~2022-10-01 07:48] MED LIST changes: -CASIRIVIMAB (REGN10933) (EUA) 600 MG, IMDEVIMAB (REGN10987) (EUA) 600 MG in SODIUM CHLO... IVPB ONE; +LACTATED RINGERS 1,000 ML IV SCH; -SODIUM CHLORIDE 0.9% 50 ML IVPB ONE; -SODIUM CHLORIDE 0.9% 500 ML 500 ML in EMPTY BAG 1 BAG IV PRN; -diphenhydrAMINE 50 MG/ML 1 ML VIAL IVP STA
[2022-10-01] MEDS ORDERED: LIDOCAINE 1% (10MG/ML) FOR IV START INTRADERMA ONE (08:20)
[2022-10-01 08:28] VITALS: RESP 16; TEMP 97.9
[2022-10-01] MEDS ORDERED: LIDOCAINE 2% INJ 20 MG/ML (2 ML VIAL) ONE (08:54)
[2022-10-01] MEDS ORDERED: GLYCOPYRROLATE 0.2 MG/ML 2 ML VIAL ONE (08:54)
[2022-10-01] MEDS ORDERED: PROPOFOL 10 MG/ML 20 ML VIAL IV ONE (08:54)
--- NOTE | 2022-10-01 09:10 | P.PCN ---
Date of Procedure: 10/01/22 Procedure(s) Performed: BRIEF HISTORY: Patient is a 52-year-old pleasant white male scheduled for an elective colonoscopy as a part of screening for colon cancer. He does have long-standing history of ulcerative colitis diagnosed in 1995. b PROCEDURE PERFORMED: Colonoscopy with random biopsy. PREOPERATIVE DIAGNOSIS: Long-standing history of ulcerative colitis. IV sedation per Anesthesia. PROCEDURE: After informed consent was obtained, the patient, was brought into the endoscopy unit. IV sedation was administered by Anesthesia under continuous monitoring. Digital rectal examination was normal. Initially the Olympus CF-160 flexible video colonoscope was then inserted in the rectum, gradually advanced into the cecum without any difficulty. Careful examination was performed as the scope was gradually being withdrawn. Ileocecal valve and the appendiceal orifice were visualized and appeared normal. Prep was excellent. Mucosa of the cecum, ascending colon, transverse colon, descending colon, sigmoid colon, and rectum appeared normal. Random biopsies were done from cecum to rectum at 10 at every 10 cm into well to rule out dysplasia. Retroflexion was performed in the rectum and no lesions were seen. The patient tolerated the procedure well. IMPRESSION: Normal-appearing colon from rectum to cecum with no evidence of active colitis or colorectal neoplasia . RECOMMENDATIONS: Findings of this examination were discussed with the patient as his family. He was advised to follow with the biopsy results. If the biopsy does not show any evidence of dysplasia he can have a repeat colonoscopy in 2 years..
[2022-10-01 09:30] VITALS: BP 106/58; PULSE 67
== END 2022-10-01 09:43 | disposition home or self-care (01) ==
LOC: ORWHC2ENDO 07:48
PROVIDERS: ATTEND Internal Medicine Gastroenterology
DX: Z12.11 Encounter for screening for malignant neoplasm of colon (principal); I10 Essential (primary) hypertension; J44.9 Chronic obstructive pulmonary disease, unspecified; F17.200 Nicotine dependence, unspecified, uncomplicated; Z87.19 Personal history of other diseases of the digestive system; Z88.0 Allergy status to penicillin; Z79.899 Other long term (current) drug therapy
CPT/HCPCS: 88305; 45380; J2704; J2001

== ENCOUNTER → 2023-03-30 | Outpatient (CLI) | payer BC ==
[2023-03-30 16:01] LABS: Basophils # (A) 0.06 X 10*3/uL; Basophils % (A) 0.7 %; Eosinophils % (A) 3.6 %; HCT 47.4 %; HGB 14.9 d/dL; Lymphocytes # (A) 2.78 X 10*3/uL; MCH 28.2 pg; MCHC 31.4 d/dL; MCV 89.6 FL; Mean Platelet Volume 9.1 FL; Monocytes # (A) 0.68 X 10*3/uL; Monocytes % (A) 8.1 %; NRBC Per 100 WBC 0 X 10*3/uL; Neutrophils # (A) 4.58 X 10*3/uL; Neutrophils % (A) 54.4 %; Platelet Count 441 X 10*3/uL; RBC 5.29 X 10*6/uL; RDW 15.9 %; WBC 8.42 X 10*3/uL
[2023-03-30 16:19] LABS: ALT 60 U/L; AST 49 U/L; Albumin 4.6 d/dL; Albumin/Globulin Ratio 1.77 Ratio; Alkaline Phosphatase 44 U/L; C Reactive Protein, High Sens 0.729 mg/L; Calcium 9.9 mg/dL; Carbon Dioxide 26.7 mmol/L; Chloride 102 mmol/L; Chol/HDL Ratio 7.82 Ratio; Estradiol 25.4 pg/mL; Globulin 2.6 d/dL; Glucose 88 mg/dL; LDL Cholesterol,Calculated 155.9 mg/dL; Potassium 5.1 mmol/L; Sodium 137 mmol/L; Total Bilirubin 0.4 mg/dL; Total Protein 7.2 d/dL
[2023-03-30 16:20] LABS: T4, Free (Free Thyroxine) 1.24 ng/dL
[2023-03-30 19:11] LABS: ACTH 15.3 pg/mL
[2023-03-30 19:51] LABS: Follicle Stimulating Hormone <0.3 mIU/mL; Luteinizing Hormone <1.0 mIU/mL
== END | disposition home or self-care (01) ==
LOC: LABWHC1 10:10
PROVIDERS: ATTEND Internal Medicine
DX: E07.9 Disorder of thyroid, unspecified (principal); E34.9 Endocrine disorder, unspecified; E55.9 Vitamin D deficiency, unspecified; E23.0 Hypopituitarism
CPT/HCPCS: 36415; 80053; 80061; 82024; 82040; 82306; 82533; 82627; 82642; 82670; 83001; 83002; 83036; 83735; 84140; 84146; 84153; 84270; 84305; 84403; 84439; 84443; 84481; 85025; 86141

== ENCOUNTER → 2023-08-19 | Outpatient (CLI) | payer BC ==
--- NOTE | 2023-08-19 13:13 | CTL ---
EXAMINATION TYPE: CT Low Dose Lung DATE OF EXAM ORDERED: 08/19/2023 COMPARISON: 08/14/2022 HISTORY: . Low Dose CT Lung Screening CT DLP: 103.[address] CTDI: 2.6 mGy IV CONTRAST USED: None. SCREENING VISIT: First visit COMPARISON: None. TECHNIQUE: Low dose computed tomography scan was performed through the chest at 1 millimeter thick se ctions and reconstructed images in the coronal plane at [address] DIAGNOSTIC QUALITY: Satisfactory FINDINGS: LUNG NODULES: Not presentLeft lung: no nodules identified.Right lung: no nodules identified. LUNGS: COPD: Severity: None Fibrosis: Severity:None Lymph nodes: None Other findings: None RIGHT PLEURAL SPACE: Effusion: None Calcification: None Thickening: None Pneumothorax: None LEFT PLEURAL SPACE: Effusion: None Calcification: None Thickening: None Pneumothorax: None HEART: Heart Size: Mildly enlarged Coronary calcification: Mild Pericardial effusion: None OTHER FINDINGS: Upper abdomen: No significant abnormality Bony thorax: Degenerative changes Supraclavicular region: No significant abnormalityOther: No significant abnormalityI IMPRESSION: No distinct pulmonary nodule seen. FOLLOW UP CT CHEST RECOMMENDATION: Follow-up screening in one year CT LUNG RAD: LUNG RAD CATEGORY category 1 negative
== END | disposition home or self-care (01) ==
LOC: RADCTMAIN 12:20
PROVIDERS: ATTEND Internal Medicine
DX: Z12.2 Encounter for screening for malignant neoplasm of respiratory organs (principal); F17.210 Nicotine dependence, cigarettes, uncomplicated
CPT/HCPCS: 71271

== ENCOUNTER → 2024-07-08 | Outpatient (CLI) | payer BC ==
--- NOTE | 2024-07-08 15:59 | US ---
EXAMINATION TYPE: US scrotum with doppler. Grayscale and color Doppler Duplex imaging performed of saranya matos scrotum. DATE OF EXAM: 07/08/2024 COMPARISON: NONE CLINICAL INDICATION: Male, 54 years old with history of N50.89 OTHER SPECIFIED DISORDERS OF THE MALE GENIT; Pt states small palpable lump near left scrotum, denies pain and swelling EXAM MEASUREMENTS: TESTICLES: Right Testicle: 3.8 x 1.8 x 2.6 cm Left Testicle: 4.0 x 1.7 x 2.6 cm EPIDIDYMIS HEAD: Right Epididymis: 1.2 cm Left Epididymis: 1.1 cm Doppler performed to assess for testicular vascularity; good bilateral color flow and waveforms are s een. There is no evidence of testicular torsion. Presence of hydroceles: No Presence of varicoceles: No In area of pt's palpable superior to left testicle within scrotum there appears to be calcifications within spermatic cord = 1.1 x 0.7 x 0.8 cm IMPRESSION: 1. No evidence of testicular torsion or mass. 2. Left spermatic cord calcification likely accounts for patient's symptomology. [facility] 07/08/2024 3:08 PM
== END | disposition home or self-care (01) ==
LOC: RADUSWWP 14:43
PROVIDERS: ATTEND Internal Medicine
DX: N50.89 Other specified disorders of the male genital organs (principal)
CPT/HCPCS: 76870; 93975

== ENCOUNTER 2024-11-17 19:40 | Emergency (ER) | payer BC ==
--- NOTE | 2024-11-17 19:56 | ED ---
General Adult HPI - General Chief complaint: Fever Stated complaint: fever Time Seen by Provider: 11/17/24 19:50 Source: patient, family, RN notes reviewed Mode of arrival: ambulatory Limitations: no limitations - History of Present Illness Initial comments: This is a 54-year-old male with a history of recurrent sinus infections, ulcerative colitis, COPD, and cluster headaches who is presenting to emergency room with his for complaint of URI symptoms. Patient states that on Thursday he began to experience body aches, chills and fevers, sinus congestion, dry cough. Patient tested positive for influenza on Thursday. Patient had outpatient chest x-ray completed today ordered by his primary care provider unremarkable for pneumonia. Patient has taken his first dose of Tamiflu and azithromycin as prescribed by his PCP however states that his symptoms have continued to worsen. States he last took Tylenol at 1800. - Related Data Home Medications Medication Instructions Recorded Confirmed Mesalamine [Lialda] 4.8 gm PO QAM 04/14/14 09/29/22 Albuterol Sulfate [Ventolin HFA] 2 puff INHALATION QAM 09/29/22 09/29/22 Fluticasone/Umeclidin/Vilanter 1 puff INHALATION QAM 09/29/22 09/29/22 [Trelegy Ellipta 200-62.5-25] Losartan [Cozaar] 25 mg PO QAM 09/29/22 09/29/22 Minocycline HCl [Minocin] 100 mg PO QAM 09/29/22 09/29/22 Montelukast [Singulair] 10 mg PO HS 09/29/22 09/29/22 Verapamil HCl [Verapamil ER] 120 mg PO QAM 09/29/22 09/29/22 cycloSPORINE 0.05% OPHTH SOLN 1 applicator BOTH EYES BID 09/29/22 09/29/22 [Restasis] Allergies Allergy/AdvReac Type Severity Reaction Status Date / Time Penicillins Allergy Severe Anaphylaxis Verified 11/17/24 19:48 Review of Systems ROS Statement: Those systems with pertinent positive or pertinent negative responses have been documented in the HPI. ROS Other: All systems not noted in ROS Statement are negative. Past Medical History Past Medical History: Hyperlipidemia Additional Past Medical History / Comment(s): ulcerative colitis, cluster headaches, LUPUS, History of Any Multi-Drug Resistant Organisms: None Reported Past Surgical History: Hernia Repair Additional Past Surgical History / Comment(s): septoplasty, hernia,right arm tendon repair, clavicle reduction ,cervical fusion, COLONOSCOPY, two torn biceps fixed, Past Anesthesia/Blood Transfusion Reactions: No Reported Reaction Past Psychological History: No Psychological Hx Reported Smoking Status: Current every day smoker Past Alcohol Use History: Rare Past Drug Use History: None Reported - Past Family History Mother History Unknown: Yes Family Medical History: Cancer, Congestive Heart Failure (CHF), CVA/TIA Additional Family Medical History / Comment(s): at 65 Father Family Medical History: Cancer Additional Family Medical History / Comment(s): Pancreatic cancer. General Exam Limitations: no limitations General appearance: alert, in no apparent distress Neck exam: Present: normal inspection. Absent: tenderness, meningismus, ly mphadenopathy Respiratory exam: Present: normal lung sounds bilaterally. Absent: respiratory distress, wheezes, rales, rhonchi, stridor Cardiovascular Exam: Present: normal rhythm, tachycardia, normal heart sounds. Absent: systolic murmur, diastolic murmur, rubs, gallop, clicks GI/Abdominal exam: Present: soft, normal bowel sounds. Absent: distended, tenderness, guarding, rebound, rigid Extremities exam: Present: normal inspection, full ROM, normal capillary refill. Absent: tenderness, pedal edema, joint swelling, calf tenderness Back exam: Present: normal inspection Course Vital Signs 11/17/24 11/17/24 19:41 21:15 Temperature 102.2 F H 101 F H Pulse Rate 126 H 108 H Respiratory 24 20 Rate Blood Pressure 135/76 141/122 O2 Sat by Pulse 98 97 Oximetry Medical Decision Making - Medical Decision Making Was pt. sent in by a medical professional or institution (, PA, PUBLIC SAFETY DIRECTOR, urgent care, hospital, or prison...) When possible be specific @ -No Did you speak to anyone other than the patient for history (EMS, parent, family, police, friend...)? What history was obtained from this source @ -No Did you review nursing and triage notes (agree or disagree)? Why? @ -I reviewed and agree with nursing and triage notes Were old charts reviewed (outside hosp., previous admission, EMS record, old EKG, old radiological studies, urgent care reports/EKG's, prison records)? Report findings @ -Reviewed patient's chest x-ray is completed on 11/17/2024 earlier in the day that was unremarkable for focal consolidation. Differential Diagnosis (chest pain, altered mental status, abdominal pain women, abdominal pain men, vaginal bleeding, weakness, fever, dyspnea, syncope, headache, dizziness, GI bleed, back pain, seizure, CVA, palpatations, mental health, musculoskeletal)? @ -COVID 19, RSV, influenza, pneumonia, acute bronchitis, URI, this list is not all inclusive EKG interpreted by me (3pts min.). @ -none X-rays interpreted by me (1pt min.). @ -None CT interpreted by me (1pt min.). @ -None done U/S interpreted by me (1pt. min.). @ -None done What testing was considered but not performed or refused? (CT, X-rays, U/S, labs)? Why? @ -Chest x-ray was considered but deferred as patient had chest x-ray earlier today that was unremarkable. What meds were considered but not given or refused? Why? @ -None Did you discuss the management of the patient with other professionals (professionals i.e. , PA, PUBLIC SAFETY DIRECTOR, lab, RT, psych nurse, social science manager, assembler equipment, teacher, navy senior officer, caseworker protective services)? Give summary @ -No Was smoking cessation discussed for >3mins.? @ -No Was critical care preformed (if so, how long)? @ -No Were there social determinants of health that impacted care today? How? (Homelessness, low income, unemployed, alcoholism, drug addiction, transportation, low edu. Level, literacy, decrease access to med. care, fpc, rehab)? @ -No Was there de-escalation of care discussed even if they declined (Discuss DNR or withdrawal of care, Hospice)? DNR status @ -No What co-morbidities impacted this encounter? (DM, HTN, Smoking, COPD, CAD, Cancer, CVA, ARF, Chemo, Hep., AIDS, mental health diagnosis, sleep apnea, morbid obesity)? @ -None Was patient admitted / discharged? Hospital course, mention meds given and route, prescriptions, significant lab abnormalities, going to OR and other pertinent info. @ -Discharge. 54-year-old male presenting with fever. On arrival patient noted be tachycardic and febrile with a temperature of 102.2 and heart rate of 126. Patient will be provided with IV fluids and Motrin pending laboratory results. Labs remarkable for leukocytosis 13.3, CMP is unremarkable. On reevaluation after fluid administration and Motrin patient states that he is feeling better. Viral testing is deferred as patient is tested positive for influenza A 3 days prior and patient is deferring viral swab. Recommend that patient continue 1 g of Tylenol every 6 hours and 800 mg ibuprofen every 8 hours in addition to completing full course of azithromycin and antiviral medication as prescribed. Report back to the emergency department for any new or worsening symptoms. Repeat temperature of 101. Patient is noted to be hypertensive however stating that he has cluster headache at this time and would like to go home where he has medications and alleviate his symptoms. Patient was offered medications emergency department however was declined patient is resistant on being discharged home. All questions have been answered at bedside strict return parameters wyatt with the patient is verbalized understanding. Case discussed with Dr. Canas Undiagnosed new problem with uncertain prognosis? @ -No Drug Therapy requiring intensive monitoring for toxicity (Heparin, Nitro, Insulin, Cardizem)? @ -No Were any procedures done? @ -No Diagnosis/symptom? @ -fever, influenza A Acute, or Chronic, or Acute on Chronic? @ -acute Uncomplicated (without systemic symptoms) or Complicated (systemic symptoms)? @ -uncomplicated Side effects of treatment? @ -No Exacerbation, Progression, or Severe Exacerbation? @ -No Poses a threat to life or bodily function? How? (Chest pain, USA, [place], pneumonia, PE, COPD, DKA, ARF, appy, cholecystitis, CVA, Diverticulitis, Homicidal, Suicidal, threat to staff... and all critical care pts) @ -No - Lab Data Result diagrams: 11/17/24 20:28 11/17/24 20:28 Lab Results 11/17/24 11/17/24 Range/Units 20:28 20:28 WBC 13.3 H (3.8-10.6) k/uL RBC 5.42 (4.30-5.90) m/uL Hgb 15.7 (13.0-17.5) gm/dL Hct 49.4 (39.0-53.0) % MCV 91.2 (80.0-100.0) fL MCH 28.9 (25.0-35.0) pg MCHC 31.7 (31.0-37.0) g/dL RDW 15.8 H (11.5-15.5) % Plt Count 345 (150-450) k/uL MPV 6.6 Neutrophils % 83 % Lymphocytes % 9 % Monocytes % 6 % Eosinophils % 1 % Basophils % 0 % Neutrophils # 11.0 H (1.3-7.7) k/uL Lymphocytes # 1.1 (1.0-4.8) k/uL Monocytes # 0.8 (0-1.0) k/uL Eosinophils # 0.2 (0-0.7) k/uL Basophils # 0.0 (0-0.2) k/uL Sodium 137 (137-145) mmol/L Potassium 4.0 (3.5-5.1) mmol/L Chloride 100 (98-107) mmol/L Carbon Dioxide 29 (22-30) mmol/L Anion Gap 8 mmol/L BUN 17 (9-20) mg/dL Creatinine 1.16 (0.66-1.25) mg/dL Est GFR (CKD-EPI)AfAm 84 (>60 ml/min/1.73 sqM) Est GFR (CKD-EPI)NonAf 73 (>60 ml/min/1.73 sqM) Glucose 101 H (74-99) mg/dL Calcium 8.8 (8.4-10.2) mg/dL Total Bilirubin 0.5 (0.2-1.3) mg/dL AST 32 (17-59) U/L ALT 23 (4-49) U/L Alkaline Phosphatase 41 (38-126) U/L Total Protein 6.5 (6.3-8.2) g/dL Albumin 3.9 (3.5-5.0) g/dL Disposition Clinical Impression: Fever, Influenza A Disposition: HOME SELF-CARE Condition: Good Instructions (If sedation given, give patient instructions): Fever in Adults (ED) Additional Instructions: Please return to the Emergency Department if symptoms worsen or any other concerns. Is patient prescribed a controlled substance at d/c from ED?: No Referrals: Vasyl Sharp DO [Primary Care Provider] - 1-2 days Time of Disposition: 21:01
[2024-11-17] MEDS: IBUPROFEN 800 MG TAB PO STA (20:18)
[2024-11-17] MEDS: SODIUM CHLORIDE 0.9% 1,000 ML IV STA (20:25)
[2024-11-17 20:37] LABS: Basophils % (A) 0 %; Eosinophils # (A) 0.2 k/uL (0-0.7); Eosinophils % (A) 1 %; HCT 49.4 % (39.0-53.0); HGB 15.7 gm/dL (13.0-17.5); Lymphocytes # (A) 1.1 k/uL (1.0-4.8); Lymphocytes % (A) 9 %; MCH 28.9 pg (25.0-35.0); MCHC 31.7 g/dL (31.0-37.0); MCV 91.2 fL (80.0-100.0); Mean Platelet Volume 6.6; Monocytes # (A) 0.8 k/uL (0-1.0); Monocytes % (A) 6 %; Neutrophils % (A) 83 %; Platelet Count 345 k/uL (150-450); RBC 5.42 m/uL (4.30-5.90); RDW 15.8 % (11.5-15.5); WBC 13.3 k/uL (3.8-10.6)
[2024-11-17 20:46] LABS: ALT 23 U/L (4-49); AST 32 U/L (17-59); African American GFR (CKD) 84 (>60 ml/min/1.73 sqM); Albumin 3.9 g/dL (3.5-5.0); Alkaline Phosphatase 41 U/L (38-126); Anion Gap 8 mmol/L; Blood Urea Nitrogen 17 mg/dL (9-20); Calcium 8.8 mg/dL (8.4-10.2); Carbon Dioxide 29 mmol/L (22-30); Chloride 100 mmol/L (98-107); Glucose 101 mg/dL (74-99); Non-African American GFR(CKD) 73 (>60 ml/min/1.73 sqM); Sodium 137 mmol/L (137-145); Total Bilirubin 0.5 mg/dL (0.2-1.3); Total Protein 6.5 g/dL (6.3-8.2)
[2024-11-17 21:16] VITALS: BP 141/122; PULSE 108; TEMP 101
[2024-11-17 21:26] VITALS: RESP 18
== END 2024-11-17 21:26 | disposition home or self-care (01) ==
LOC: EC 19:40
DX: J10.1 Influenza due to other identified influenza virus with other respiratory manifestations (principal); D72.829 Elevated white blood cell count, unspecified; F17.200 Nicotine dependence, unspecified, uncomplicated; Z88.0 Allergy status to penicillin
CPT/HCPCS: 36415; 80053; 85025; 96360; 99284

== ENCOUNTER → 2024-11-17 | Outpatient (CLI) | payer BC ==
--- NOTE | 2024-11-17 12:44 | XR ---
EXAMINATION TYPE: XR chest 2V DATE OF EXAM: 11/17/2024 12:35 PM COMPARISON: Prior chest x-ray September 21, 2022. CLINICAL INDICATION: Male, 54 years old with history of R05.1, cough, congestion, difficulty breathin g for 4 days TECHNIQUE: Frontal and lateral views of the chest are obtained. FINDINGS: There is no focal air space opacity, pleural effusion, or pneumothorax seen. The cardiac silhouette size remains within normal limits. Surgical change in lower cervical spine is redemonstrat ed.. IMPRESSION: No acute pulmonary process. [facility], , 11/17/2024 12:42 PM
== END | disposition home or self-care (01) ==
LOC: RADXRMAIN 12:24
PROVIDERS: ATTEND Internal Medicine
DX: R06.02 Shortness of breath (principal); R09.89 Other specified symptoms and signs involving the circulatory and respiratory systems
CPT/HCPCS: 71046

== ENCOUNTER → 2024-12-30 | Outpatient (CLI) | payer BC ==
--- NOTE | 2024-12-30 10:23 | CT ---
EXAMINATION TYPE: CT angio head neck DATE OF EXAM: 12/30/2024 COMPARISON: Carotid ultrasound December 14, 2024 CLINICAL INDICATION: Male, 54 years old with history of I65.21 Stenosis of right carotid artery; [facility], RIGHT CAROTID STENOSIS TECHNIQUE: CTA scan of the head and neck is performed with IV Contrast, patient injected with 65 mL of Isovue 370, axial images are obtained, coronal and sagittal reformatted images are reviewed. 3D re constructed images are created on an independent workstation and reviewed. CT DLP: 1479.8 mGycm Automated exposure control for dose reduction was used. NASCET criteria was used in interpretation of this exam? FINDINGS: Right Carotid System: The common carotid artery and external carotid artery are patent. The carotid bifurcation demonstrate s no evidence of hemodynamically significant stenosis. Mild peripheral calcified plaque is present. T he remaining portions of the internal carotid artery demonstrate normal size without significant narr owing. Left Carotid System: The common carotid artery and external carotid artery are patent. The carotid bifurcation demonstrate s no evidence of hemodynamically significant stenosis. The remaining portions of the internal carotid artery demonstrate normal size without significant narrowing. Vertebral arteries are patent without evidence hemodynamically significant stenosis. Patent anterior communicating artery. No focal aneurysm at level of [place]. 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 The origins of the great vessels are not imaged. No evide nce of hemodynamically significant stenosis. Other: Mild to moderate mucosal thickening left sphenoid sinus. Patchy secretions bilateral sphenoid sinuses. Mild mucosal thickening left maxillary sinus. [id number] mucosal thickening bilateral ethmoid sinuses greatest anteriorly. IMPRESSION: 1. No evidence of significant stenosis at the carotid bifurcations. No large vessel occlusion or ane urysm at level of [place]. [facility], , 12/30/2024 10:21 AM
== END | disposition home or self-care (01) ==
LOC: RADCTMAIN 07:47
PROVIDERS: ATTEND Internal Medicine
DX: I65.23 Occlusion and stenosis of bilateral carotid arteries (principal)
CPT/HCPCS: 70496; 70498; Q9967